=== PATIENT | female | born 1950 | race Hispanic/Latino ===

== ENCOUNTER 2017-01-15 22:24 | Emergency (ER) | payer OTHER ==
[~2017-01-15] VITALS: Ht 165.1 cm; Wt 72.0 kg
[~2017-01-15 22:24] MED LIST: ALPRAZOLAM0.5 MG PO; ERGOCALCIF50000 UNIT PO; FLEXERIL10 MG PO; GABAPENTIN400 MG PO; GEODON40 MG PO; GEODON60 MG PO; LOVASTATIN40 MG PO; MIRTAZAPINE15 MG PO; MORPHINE SULFAT15 M1 PO; NEXIUM40 MG PO; OXYCODONE-APAP1 EACH PO; PERCOCET 5/31 TABLET PO; RAZADYNE4 MG PO; SERTRALINE HCL100 MG; SERTRALINE HCL100 MG PO; TERBINAFINE HC250 MG PO; TIZANIDINE HCL2 M1 PO; ZOLOFT50 MG PO
[2017-01-15 23:01] LABS: HEMATOCRIT 45.7 % (36.0-46.0); MCHC 32.8 G/DL (30.0-36.0); MCV 85.3 FL (83-99); PLATELET COUNT 284 K/uL (156-360); RBC DIS.WIDTH-SD 40.1 % (39-53); RED BLOOD COUNT 5.36 M/uL (3.80-5.20); WHITE BLOOD COUNT 10.7 K/uL (4.1-10.2)
[2017-01-15 23:10] LABS: CHLORIDE 103 mEq/L (99-109); POTASSIUM 3.9 mEq/L (3.7-5.4); SODIUM 142 mEq/L (136-147)
[2017-01-15 23:11] LABS: GLUCOSE 70 mg/dL (70-99)
[2017-01-15 23:13] LABS: ANION GAP 12 MEQ/L (2-14)
[2017-01-15 23:15] LABS: GFR ESTIMATE (CALCULATED) 44 mL/min/
[2017-01-15 23:16] LABS: UREA NITROGEN (BUN) 19 mg/dL (9-23)
[2017-01-15 23:22] LABS: TROP-I INTERPRETATION NEGATIVE; TROPONIN-I < 0.01 ng/mL (0.0-0.30)
[2017-01-16 00:06] LABS: D-DIMER ELISA 0.28 mg/L FEU (< 0.57)
[2017-01-16 00:09] LABS: TOTAL BILIRUBIN 0.5 mg/dL (0.0-1.0)
[2017-01-16 00:10] LABS: ALKALINE PHOSPHATASE 88 IU/L (3-129)
[2017-01-16 00:13] LABS: DIRECT BILIRUBIN 0.1 mg/dL (0.0-0.3)
[2017-01-16 00:14] LABS: LIPASE 46 U/L (1.0-51.0)
[2017-01-16 01:39] LABS: TROP-I INTERPRETATION NEGATIVE; TROPONIN-I < 0.01 ng/mL (0.0-0.30)
[2017-01-16 02:08] VITALS: BP 108/67
== END 2017-01-16 02:11 | disposition home or self-care (01) ==
LOC: EME 22:24
PROVIDERS: Emergency Medicine
DX: R07.9 Chest pain, unspecified (principal); R42 Dizziness and giddiness; R53.1 Weakness; R06.02 Shortness of breath; R20.0 Anesthesia of skin; R11.0 Nausea; E78.5 Hyperlipidemia, unspecified
CPT/HCPCS: 71020; 80048; 80076; 83690; 83880; 84484; 85027; 85379; 93005; 99281; 99284